=== PATIENT | male | born 1960 | race African-American/Black ===

== ENCOUNTER 2016-12-07 11:56 | Inpatient (IN) | payer OTHER ==
[2016-12-07 13:16] VITALS: BMI 22.1
--- NOTE | 2016-12-07 15:30 | HP ---
Admission ROS [facility] Chief Complaint: I AM HERE FOR REHAB FROM HEROIN AND COCAINE Allergies/Adverse Reactions: Allergies Allergy/AdvReac Type Severity Reaction Status Date / Time No Known Drug Allergies Allergy Verified 12/07/16 15:15 NKA Allergy Uncoded 12/07/16 15:15 History of Present Illness: THIS 56 YEARS OLD MALE WITH HEROIN AND COCAINE DEPENDENCE,ADMITTED IN [facility] FROM 11/29/16 TO 12/05/16 FOR DETOX AND BLOOD CLOT OF RIGHT LEG AMBULATION WITH CANE LONGEST PERIOD OF SOBRIETY 90 DAYS Exam Limitations: No Limitations - Ebola screening Have you traveled outside of the country in the last 21 days: No Have you had contact with anyone from an Ebola affected area: No Have you been sick,other than usual withdrawal symptoms: No Do you have a fever: No - Review of Systems Constitutional: No Symptoms Reported EENT: reports: No Symptoms Reported Respiratory: reports: No Symptoms reported Cardiac: reports: No Symptoms Reported GI: reports: No Symptoms Reported : reports: No Symptoms Reported Musculoskeletal: reports: Muscle Pain Integumentary: reports: No Symptoms Reported Neuro: reports: No Symptoms reported Endocrine: reports: No Symptoms Reported Hematology: reports: No Symptoms Reported Psychiatric: reports: Judgement Intact, Mood/Affect Appropiate, Orientated x3 ( INSOMNIA) Patient History - Patient Medical History Hx Anemia: No Hx Asthma: No Hx Chronic Obstructive Pulmonary Disease (COPD): No Hx Cancer: No Hx Cardiac Disorders: No Hx Congestive Heart Failure: No Hx Hypertension: No Hx Hypercholesterolemia: No Hx Pacemaker: No HX Cerebrovascular Accident: No Hx Seizures: No Hx Dementia: No Hx Diabetes: No Hx Gastrointestinal Disorders: No Hx Liver Disease: No Hx Genitourinary Disorders: No Hx Sexually Transmitted Disorders: No Hx Renal Disease (ESRD): No Hx Thyroid Disease: No Hx Human Immunodeficiency Virus (HIV): No (LAST 11/29/16 NEGATIVE) Hx Hepatitis C: No Hx Depression: No Hx Suicide Attempt: No Hx Bipolar Disorder: No Hx Schizophrenia: No Other Medical History: NO SUICIDAL,NO HOMICIDAL,DVT RIGH TLEG 11/29/16 ON ELIQUIS - Patient Surgical History Past Surgical History: Yes Hx Orthopedic Surgery: Yes (FRACURE OF RIGHT LEG AND RIGHT KNEE) - PPD History Previous Implant?: Yes Documented Results: Negative w/o proof Implanted On Prior [facility] Admission?: No PPD to be Administered?: Yes - Smoking Cessation Smoking history: Current every day smoker Have you smoked in the past 12 months: Yes Aproximately how many cigarettes per day: 2 Initiated information on smoking cessation: Yes 'Breaking Loose' booklet given: 12/07/16 - Substance & Tx. History Hx Alcohol Use: No Hx Substance Use: Yes Substance Use Type: Cocaine, Heroin Hx Substance Use Treatment: Yes ([facility] 11/29/16 TO 12/05/16) - Substances Abused Heroin Route: Inhalation Frequency: 3-6 times per week Amount used: 1 BAG Age of first use: 21 Date of Last Use: 12/05/16 Cocaine Route: Inhalation Frequency: 3-6 times per week Amount used: 30$ Age of first use: 21 Date of Last Use: 12/05/16 Family Disease History - Family Disease History Family History: Denies Admission Physical Exam S - Vital Signs Vital Signs: Vital Signs - 24 hr 12/07/16 13:14 Temperature 98.3 F Pulse Rate 53 L Respiratory 20 Rate Blood Pressure 161/93 - Physical General Appearance: Yes: Within Normal Limits HEENTM: Yes: Hearing grossly Normal, Normal ENT Inspection, Pharynx Normal Respiratory: Yes: Lungs Clear, Normal Breath Sounds, No Respiratory Distress Neck: Yes: Within Normal Limits, Supple, Trachea in good position Breast: Yes: Within Normal Limits Cardiology: Yes: Within Normal Limits, Regular Rhythm, Regular Rate, S1, S2 Abdominal: Yes: Within Normal Limits, Normal Bowel Sounds, Non Tender, Flat, Soft Genitourinary: Yes: Within Normal Limits Back: Yes: Muscle Spasm Musculoskeletal: Yes: Muscle Pain Extremities: Yes: Normal Capillary Refill, Normal Inspection, Normal Range of Motion, Other (DVT OF RIGHT LEG ON ELIQUIS FOR 1 WEEK AMBULATION WITH CANE) Neurological: Yes: certified court interpreter II-XII NML intact, Fully Oriented, Alert, Motor Strength 5/5 Integumentary: Yes: Within Normal Limits Lymphatic: Yes: Within Normal Limits - Diagnostic (1) Opioid dependence Current Visit: Yes Status: Acute (2) Cocaine dependence Current Visit: Yes Status: Acute (3) Right leg DVT Current Visit: Yes Status: Acute (4) Use of cane as ambulatory aid Current Visit: Yes Status: Acute (5) Fracture of right lower extremity Current Visit: Yes Status: Acute (6) Knee fracture, right Current Visit: Yes Status: Acute (7) Nicotine dependence Current Visit: Yes Status: Acute Cleared for Admission S - Detox or Rehab Claeared for Rehab Admission: Yes [facility] Breath Alcohol Content Breath Alcohol Content: 0 Urine Drug Screen - Results Drug Screen Negative: No Urine Drug Screen Results: THC-Marijuana, DEVON-Cocaine, OPI-Opiates, MTD- Methadone
[2016-12-07] MEDS ORDERED: MAGNESIUM CITRATE 300 ML BOTTLE PO PRN (15:56)
[2016-12-07] MEDS ORDERED: guaiFENesin/D-METHORPHAN HB 10 ML UNIT-DOSE CUPS PO PRN (15:56)
[2016-12-07] MEDS ORDERED: MENTHOL/PHENOL 1 EACH UD MM PRN (15:56)
[2016-12-07] MEDS ORDERED: hydrOXYzine PAMOATE 50 MG CAPSULE (FP) PO PRN (15:56)
[2016-12-07] MEDS ORDERED: MAGNESIUM HYDROX 2400MG/30ML ORAL SUSPENSION 30 ML CUP PO PRN (15:56)
[2016-12-07] MEDS ORDERED: P-EPHED 60MG/TRIPROLIDI 2.5MG TABLET PO PRN (15:56)
[2016-12-07] MEDS ORDERED: MAG HYDROX/AL HYDROX/SIMETH 30 ML UNIT-DOSE CUP PO PRN (15:56)
[2016-12-07] MEDS ORDERED: LOPERAMIDE HCL 2 MG CAPSULE PO PRN (15:56)
[2016-12-07] MEDS ORDERED: PT OWN MED DRAWER 7, Y5N ONE ×3 (18:47→21:29)
[2016-12-07 20:01] LABS: URINE APPEARANCE CLEAR; URINE BILIRUBIN NEGATIVE (NEGATIVE); URINE BLOOD NEGATIVE (NEGATIVE); URINE COLOR YELLOW; URINE GLUCOSE (UA) NEGATIVE (NEGATIVE); URINE KETONE NEGATIVE (NEGATIVE); URINE LEUK ESTERASE NEGATIVE (NEGATIVE); URINE NITRITE NEGATIVE (NEGATIVE); URINE PROTEIN NEGATIVE (NEGATIVE); URINE UROBILINOGEN NEGATIVE E.U./dl (0.2-1.0)
[2016-12-07] MEDS: NICOTINE 7 MG/24 HOURS TOPICAL PATCH TD SCH (21:25)
[2016-12-07] MEDS: IBUPROFEN 400 MG TABLET (FP) PO PRN (21:26)
[2016-12-07] MEDS: THIAMINE HCL 100 MG TABLET (FP) PO SCH (21:26)
[2016-12-07] MEDS: diphenhydrAMINE HCL 50 MG CAPSULE PO PRN (21:27)
[2016-12-07] MEDS: APIXABAN 5 MG TABLET PO SCH (21:30)
--- NOTE | 2016-12-08 06:27 | HP ---
Psychiatrist Admission - Data Date of interview: 12/08/16 Admission source: Self-referred Identifying data: This is the first [facility] admision for this 56 years old single Black male, unemployed, domiciled living with mother Medical History: Significant for DVT right leg and surgery for fracture right leg & right knee. Smokes 2 cigarettes daily Psychiatric History: Denies history of previous psychiatric treatment. However, reports feeling mildly depressed and experiencing difficulty to sleep Physical/Sexual Abuse/Trauma History: Denies history of emotional, physical or sexual as well as DV relationship. No service Additional Comment: Reports history of multiple misdemeanor arrests. Denies being on probation at present Vital Signs: Vital Signs - 24 hr 12/07/16 12/08/16 13:14 03:30 Temperature 98.3 F Pulse Rate 53 L Respiratory 20 18 Rate Blood Pressure 161/93 Allergies/Adverse Reactions: Allergies Allergy/AdvReac Type Severity Reaction Status Date / Time No Known Drug Allergies Allergy Verified 12/07/16 15:15 NKA Allergy Uncoded 12/07/16 15:15 Date of last physical exam: 12/07/16 Concur with the findings of this exam: Yes - Substance Abuse/Tx History Hx Alcohol Use: No Hx Substance Use: Yes Substance Use Type: Cocaine (Started using cocaine at age 21, consumes $30 worth daily. Last used on 12/05/16), Heroin (Started using heroin at age 21, consumes one bag 3-6 times weekly. Last used on 12/05/16) Hx Substance Use Treatment: Yes (3 previous inpt detox, most recent @ [facility] & one inpt rehab) - Admission Criteria Previous failed treatment: Yes Poor recovery environment: Yes Comorbidities: Yes Lacks judgement: Yes Mental Status Exam - Mental Status Exam Alert and Oriented to: Time, Place, Person Cognitive Function: Fair Patient Appearance: Well Groomed Mood: Depressed (mildly) Affect: Normal Range Patient Behavior: Cooperative Speech Pattern: Clear Voice Loudness: Normal Thought Process: Intact Thought Disorder: Not Present Hallucinations: Denies Suicidal Ideation: Denies Homicidal Ideation: Denies Insight/Judgement: Fair Sleep: Poorly Appetite: Poor Muscle strength/Tone: Normal Gait/Station: Other (walks with a cane) Psychiatric Findings - Problem List ([place] 1, 2,3) (1) Opioid dependence Current Visit: Yes Status: Acute (2) Cocaine dependence Current Visit: Yes Status: Acute (3) Nicotine dependence Current Visit: Yes Status: Acute (4) Substance induced mood disorder Current Visit: Yes Status: Acute (5) Substance-induced sleep disorder Current Visit: Yes Status: Acute (6) Fracture of right lower extremity Current Visit: Yes Status: Acute (7) Knee fracture, right Current Visit: Yes Status: Acute (8) Right leg DVT Current Visit: Yes Status: Acute (9) Use of cane as ambulatory aid Current Visit: Yes Status: Acute - Initial Treatment Plan Initial Treatment Plan: 1) Start Trazadone 100 mg po HS. 2) Monitor progress
[2016-12-08] MEDS: PRENATAL VITAMINS W/ FOLIC ACID TABLET (FP) PO SCH (10:17)
[2016-12-08] MEDS: APIXABAN 5 MG TABLET PO SCH ×2 (10:17→21:17)
[2016-12-08] MEDS: NICOTINE 7 MG/24 HOURS TOPICAL PATCH TD SCH (10:18)
[2016-12-08] MEDS: IBUPROFEN 400 MG TABLET (FP) PO PRN (10:19)
--- NOTE | 2016-12-08 11:23 | EKG ---
Test Reason : Blood Pressure : / mmHG Vent. Rate : 058 BPM Atrial Rate : 058 BPM P-R Int : 122 ms QRS Dur : 084 ms QT Int : 426 ms P-R-T Axes : 074 081 044 degrees QTc Int : 418 ms SINUS BRADYCARDIA OTHERWISE NORMAL ECG NO PREVIOUS ECGS AVAILABLE Confirmed by TUTU CLAIRE MD ([id number]) on 12/08/2016 11:23:18 AM Referred By: Cheo Hancock Confirmed By:TUTU CLAIRE MD
[2016-12-08 11:30] LABS: MCH 27.5 pg (25.7-33.7); MCHC 32.1 g/dl (32.0-35.9); MEAN CELL VOLUME 85.6 fl (80-96); MEAN PLT VOLUME 9.2 fl (7.5-11.1); PLATELET COUNT 193 K/MM3 (134-434); RDW 15.1 % (11.9-15.9); WHITE BLOOD COUNT 4.5 K/mm3 (4.0-10.0)
[2016-12-08 11:42] LABS: ALBUMIN 3.4 g/dl (3.4-5.0); BILIRUBIN,TOTAL 0.6 mg/dL (0.2-1.0); COCKROFT - GAULT 66.17; CREATININE 1.4 mg/dL (0.7-1.3); TOT PROT 6.4 g/dl (6.4-8.2)
[2016-12-08 12:06] LABS: HIV 1 & 2 AB NEGATIVE; HIV 1 AGp24 NEGATIVE
[2016-12-08] MEDS ORDERED: PT OWN MED DRAWER 7, Y5N ONE (20:37)
[2016-12-08] MEDS: diphenhydrAMINE HCL 50 MG CAPSULE PO PRN (21:17)
[2016-12-08] MEDS: traZODone HCL 100 MG TABLET (FP) PO SCH (21:17)
[2016-12-08] MEDS: THIAMINE HCL 100 MG TABLET (FP) PO SCH (21:17)
[2016-12-09] MEDS ORDERED: PT OWN MED DRAWER 7, Y5N ONE (08:56)
[2016-12-09] MEDS: PRENATAL VITAMINS W/ FOLIC ACID TABLET (FP) PO SCH (10:19)
[2016-12-09] MEDS: APIXABAN 5 MG TABLET PO SCH ×2 (10:19→21:05)
[2016-12-09] MEDS: NICOTINE 7 MG/24 HOURS TOPICAL PATCH TD SCH (10:20)
[2016-12-09] MEDS: THIAMINE HCL 100 MG TABLET (FP) PO SCH (21:05)
[2016-12-09] MEDS: traZODone HCL 100 MG TABLET (FP) PO SCH (21:05)
[2016-12-09] MEDS: IBUPROFEN 400 MG TABLET (FP) PO PRN (21:06)
[2016-12-10] MEDS ORDERED: PT OWN MED DRAWER 7, Y5N ONE (08:50)
[2016-12-10] MEDS: PRENATAL VITAMINS W/ FOLIC ACID TABLET (FP) PO SCH (09:54)
[2016-12-10] MEDS: NICOTINE 7 MG/24 HOURS TOPICAL PATCH TD SCH (09:54)
[2016-12-10] MEDS: APIXABAN 5 MG TABLET PO SCH ×2 (09:54→21:30)
[2016-12-10] MEDS: IBUPROFEN 400 MG TABLET (FP) PO PRN ×2 (11:19→21:30)
[2016-12-10] MEDS: traZODone HCL 100 MG TABLET (FP) PO SCH (21:30)
[2016-12-10] MEDS: diphenhydrAMINE HCL 50 MG CAPSULE PO PRN (21:31)
[2016-12-10] MEDS: THIAMINE HCL 100 MG TABLET (FP) PO SCH (21:31)
[2016-12-11] MEDS ORDERED: PT OWN MED DRAWER 7, Y5N ONE ×3 (08:57→19:45)
[2016-12-11] MEDS: PRENATAL VITAMINS W/ FOLIC ACID TABLET (FP) PO SCH (10:22)
[2016-12-11] MEDS: IBUPROFEN 400 MG TABLET (FP) PO PRN (10:22)
[2016-12-11] MEDS: APIXABAN 5 MG TABLET PO SCH ×2 (10:22→21:14)
[2016-12-11] MEDS: NICOTINE 7 MG/24 HOURS TOPICAL PATCH TD SCH (10:24)
--- NOTE | 2016-12-11 13:14 | PN ---
Psychiatric Progress Note Vital Signs: Vital Signs Period Temp Pulse Resp BP Sys/[place] Pulse Ox Last 24 Hr 98.5 F 67 16-18 143/93 Date of Session: 12/11/16 Chief Complaint:: Insomnia HPI: Patient addressing Opoid and Cocaine Dependence comorbid with Nicotine Dependence, Substance-Induced Mood Disorder and Substance-Induced Sleep Disorder ROS: DVT right leg Current Medications: Active Medications Generic Name Dose Route Start Last Admin Trade Name Freq PRN Reason Stop Dose Admin Acetaminophen 650 mg 12/07/16 15:56 Tylenol - PO Q4H PRN PAIN Al Hydroxide/Mg Hydroxide 30 ml 12/07/16 15:56 Mylanta Oral Suspension - PO Q6H PRN DYSPEPSIA Apixaban 5 mg 12/07/16 22:00 12/11/16 10:22 Eliquis - PO 5 mg BID VARUN Administration Diphenhydramine HCl 50 mg 12/07/16 15:56 12/10/16 21:31 Benadryl - PO 50 mg HSMR1 PRN Administration INSOMNIA Eucalyptus/Menthol/Phenol/Sorbitol 1 each 12/07/16 15:56 Cepastat Lozenge - MM Q4H PRN SORE THROAT Guaifenesin 10 ml 12/07/16 15:56 Robitussin Dm - PO Q6H PRN COUGH Hydroxyzine Pamoate 50 mg 12/07/16 15:56 Vistaril - PO Q4H PRN AGITATION Ibuprofen 400 mg 12/07/16 15:56 12/11/16 10:22 Motrin - PO 400 mg Q6H PRN Administration SEVERE PAIN Loperamide HCl 4 mg 12/07/16 15:56 Imodium - PO Q6H PRN DIARRHEA Magnesium Citrate 300 ml 12/07/16 15:56 Citroma - PO Q48H PRN CONSTIPATION Magnesium Hydroxide 30 ml 12/07/16 15:56 Milk Of Magnesia - PO DAILY PRN CONSTIPATION Nicotine 7 mg 12/07/16 16:45 12/11/16 10:24 Nicoderm Patch - TD 7 mg DAILY VARUN Administration Multivit/Folic Acid/Iron 1 tab 12/08/16 10:00 12/11/16 10:22 Vitamins ([facility]) - PO 1 tab DAILY VARUN Administration Pseudoephedrine/Triprolidine 1 combo 12/07/16 15:56 Actifed - PO TID PRN NASAL CONGESTION Thiamine HCl 100 mg 12/07/16 22:00 12/10/16 21:31 Vitamin B1 - PO 100 mg HS VARUN Administration Trazodone HCl 100 mg 12/08/16 22:00 12/10/16 21:30 Desyrel - PO 100 mg HS VARUN Administration Medication(s) Change(s): Increase Trazadone dosage to 150 mg po HS Current Side Effect: No Lab tests ordered: Yes Lab tests reviewed: Yes Provider note:: Patient reports experiencing difficulty to sleep. Told travel writer that he has been sleeping poorly despite taking Trazadone 100 mg po HS. Requests thar dodage of medication be increased Total face to face time:: 25 Mental Status Exam - Mental Status Exam Alert and Oriented to: Time, Place, Person Cognitive Function: Fair Patient Appearance: Well Groomed Mood: Hopeful, Euthymic Affect: Appropriate Patient Behavior: Cooperative Speech Pattern: Clear Voice Loudness: Normal Thought Process: Intact Thought Disorder: Not Present Hallucinations: Denies Suicidal Ideation: Denies Homicidal Ideation: Denies Insight/Judgement: Fair Sleep: Poorly Appetite: Good Muscle strength/Tone: Normal Gait/Station: Normal Psychiatric Treatment Plan - Problem List (1) Opioid dependence Current Visit: Yes (2) Cocaine dependence Current Visit: Yes (3) Nicotine dependence Current Visit: Yes (4) Substance induced mood disorder Current Visit: Yes (5) Substance-induced sleep disorder Current Visit: Yes (6) Fracture of right lower extremity Current Visit: Yes (7) Knee fracture, right Current Visit: Yes (8) Right leg DVT Current Visit: Yes (9) Use of cane as ambulatory aid Current Visit: Yes Initial treatment plan: 1) Dicontinue Trazadone 100 mg po HS. 2) Start Trazadone 150 mg po HS for insomnia. 3) Monitor progress
[2016-12-11] MEDS: THIAMINE HCL 100 MG TABLET (FP) PO SCH (21:13)
[2016-12-11] MEDS: diphenhydrAMINE HCL 50 MG CAPSULE PO PRN (21:14)
[2016-12-11] MEDS: traZODone HCL 50 MG TABLET (FP) PO SCH (21:14)
[2016-12-12] MEDS ORDERED: PT OWN MED DRAWER 7, Y5N ONE ×3 (08:58→21:06)
[2016-12-12] MEDS: APIXABAN 5 MG TABLET PO SCH ×2 (10:16→21:05)
[2016-12-12] MEDS: PRENATAL VITAMINS W/ FOLIC ACID TABLET (FP) PO SCH (10:16)
[2016-12-12] MEDS: NICOTINE 7 MG/24 HOURS TOPICAL PATCH TD SCH (10:16)
[2016-12-12] MEDS: IBUPROFEN 400 MG TABLET (FP) PO PRN (14:52)
[2016-12-12] MEDS: traZODone HCL 50 MG TABLET (FP) PO SCH (21:05)
[2016-12-12] MEDS: THIAMINE HCL 100 MG TABLET (FP) PO SCH (21:05)
[2016-12-12] MEDS: diphenhydrAMINE HCL 50 MG CAPSULE PO PRN (21:05)
[2016-12-13] MEDS ORDERED: PT OWN MED DRAWER 7, Y5N ONE ×2 (09:00→21:05)
[2016-12-13] MEDS: APIXABAN 5 MG TABLET PO SCH ×2 (10:11→21:05)
[2016-12-13] MEDS: PRENATAL VITAMINS W/ FOLIC ACID TABLET (FP) PO SCH (10:11)
[2016-12-13] MEDS: IBUPROFEN 400 MG TABLET (FP) PO PRN (10:11)
[2016-12-13] MEDS: NICOTINE 7 MG/24 HOURS TOPICAL PATCH TD SCH (10:13)
--- NOTE | 2016-12-13 15:29 | PN ---
[facility] Progress Note Note: 56 y/o m pt in rehab for heroin dep. with h/o dvt tx'ed at [facility] from -12/05/16. pt then admitted to rehab now pt c/o painful rt lower extremity described as same pain he experienced with dvt. Pt presently on eliquis imp- rt lower extremity pain /dvt plan-ED referral for further eval. signed out to Ariel Bose MD in ED [facility]
[2016-12-13] MEDS: THIAMINE HCL 100 MG TABLET (FP) PO SCH (21:05)
[2016-12-13] MEDS: diphenhydrAMINE HCL 50 MG CAPSULE PO PRN (21:05)
[2016-12-13] MEDS: traZODone HCL 50 MG TABLET (FP) PO SCH (21:05)
[2016-12-14] MEDS: ACETAMINOPHEN 325 MG TABLET (FP) PO PRN ×2 (06:14→17:06)
[2016-12-14] MEDS ORDERED: PT OWN MED DRAWER 7, Y5N ONE ×2 (09:33→21:01)
[2016-12-14] MEDS: NICOTINE 7 MG/24 HOURS TOPICAL PATCH TD SCH (10:18)
[2016-12-14] MEDS: APIXABAN 5 MG TABLET PO SCH ×2 (10:18→21:01)
[2016-12-14] MEDS: PRENATAL VITAMINS W/ FOLIC ACID TABLET (FP) PO SCH (10:18)
[2016-12-14] MEDS: THIAMINE HCL 100 MG TABLET (FP) PO SCH (21:01)
[2016-12-14] MEDS: diphenhydrAMINE HCL 50 MG CAPSULE PO PRN ×2 (21:01→22:16)
[2016-12-14] MEDS: traZODone HCL 50 MG TABLET (FP) PO SCH (21:02)
[2016-12-15] MEDS: PRENATAL VITAMINS W/ FOLIC ACID TABLET (FP) PO SCH (10:16)
[2016-12-15] MEDS: NICOTINE 7 MG/24 HOURS TOPICAL PATCH TD SCH (10:16)
[2016-12-15] MEDS: APIXABAN 5 MG TABLET PO SCH ×2 (10:17→21:07)
[2016-12-15] MEDS ORDERED: PT OWN MED DRAWER 7, Y5N ONE (10:17)
[2016-12-15] MEDS: FLUTICASONE PROP 0.05% 16 GM NASAL SPRAY NS SCH ×2 (12:21→21:05)
[2016-12-15] MEDS: THIAMINE HCL 100 MG TABLET (FP) PO SCH (21:05)
[2016-12-15] MEDS: diphenhydrAMINE HCL 50 MG CAPSULE PO PRN (21:06)
[2016-12-15] MEDS: traZODone HCL 50 MG TABLET (FP) PO SCH (21:06)
[2016-12-16] MEDS ORDERED: PT OWN MED DRAWER 7, Y5N ONE ×3 (08:38→21:09)
[2016-12-16] MEDS: PRENATAL VITAMINS W/ FOLIC ACID TABLET (FP) PO SCH (10:19)
[2016-12-16] MEDS: FLUTICASONE PROP 0.05% 16 GM NASAL SPRAY NS SCH ×2 (10:19→21:09)
[2016-12-16] MEDS: APIXABAN 5 MG TABLET PO SCH ×2 (10:20→21:52)
[2016-12-16] MEDS: NICOTINE 7 MG/24 HOURS TOPICAL PATCH TD SCH (10:20)
[2016-12-16] MEDS: diphenhydrAMINE HCL 50 MG CAPSULE PO PRN (21:08)
[2016-12-16] MEDS: THIAMINE HCL 100 MG TABLET (FP) PO SCH (21:08)
[2016-12-16] MEDS: traZODone HCL 50 MG TABLET (FP) PO SCH (21:52)
[2016-12-17] MEDS ORDERED: PT OWN MED DRAWER 7, Y5N ONE ×3 (08:04→10:45)
[2016-12-17] MEDS: APIXABAN 5 MG TABLET PO SCH ×2 (10:20→21:06)
[2016-12-17] MEDS: PRENATAL VITAMINS W/ FOLIC ACID TABLET (FP) PO SCH (10:20)
[2016-12-17] MEDS: NICOTINE 7 MG/24 HOURS TOPICAL PATCH TD SCH (10:20)
[2016-12-17] MEDS: FLUTICASONE PROP 0.05% 16 GM NASAL SPRAY NS SCH ×2 (10:21→21:05)
[2016-12-17] MEDS: diphenhydrAMINE HCL 50 MG CAPSULE PO PRN (21:04)
[2016-12-17] MEDS: THIAMINE HCL 100 MG TABLET (FP) PO SCH (21:04)
[2016-12-17] MEDS: traZODone HCL 50 MG TABLET (FP) PO SCH (21:05)
[2016-12-18] MEDS ORDERED: PT OWN MED DRAWER 7, Y5N ONE (08:59)
[2016-12-18] MEDS: PRENATAL VITAMINS W/ FOLIC ACID TABLET (FP) PO SCH (09:56)
[2016-12-18] MEDS: APIXABAN 5 MG TABLET PO SCH ×2 (09:56→21:20)
[2016-12-18] MEDS: FLUTICASONE PROP 0.05% 16 GM NASAL SPRAY NS SCH ×2 (09:56→21:19)
[2016-12-18] MEDS: NICOTINE 7 MG/24 HOURS TOPICAL PATCH TD SCH (09:57)
[2016-12-18] MEDS: traZODone HCL 50 MG TABLET (FP) PO SCH (21:20)
[2016-12-18] MEDS: THIAMINE HCL 100 MG TABLET (FP) PO SCH (21:20)
[2016-12-18] MEDS: diphenhydrAMINE HCL 50 MG CAPSULE PO PRN (21:20)
--- NOTE | 2016-12-19 09:32 | PN ---
Psychiatric Progress Note Vital Signs: Vital Signs Period Temp Pulse Resp BP Sys/[place] Pulse Ox Last 24 Hr 99 F 83 18-20 118/80 Date of Session: 12/19/16 Chief Complaint:: Discharge Note HPI: Patient addressing Opoid and Cocaine Dependence comorbid with Nicotine Dependence, Substance-Induced Mood Disorder and Substance-Induced Sleep Disorder ROS: DVT right leg was medically managed Current Medications: Active Medications Generic Name Dose Route Start Last Admin Trade Name Freq PRN Reason Stop Dose Admin Acetaminophen 650 mg 12/07/16 15:56 12/14/16 17:06 Tylenol - PO 650 mg Q4H PRN Administration PAIN Al Hydroxide/Mg Hydroxide 30 ml 12/07/16 15:56 12/15/16 12:39 Mylanta Oral Suspension - PO 30 ml Q6H PRN Administration DYSPEPSIA Apixaban 5 mg 12/07/16 22:00 12/18/16 21:20 Eliquis - PO 5 mg BID VARUN Administration Diphenhydramine HCl 50 mg 12/07/16 15:56 12/18/16 21:20 Benadryl - PO 50 mg HSMR1 PRN Administration INSOMNIA Eucalyptus/Menthol/Phenol/Sorbitol 1 each 12/07/16 15:56 Cepastat Lozenge - MM Q4H PRN SORE THROAT Fluticasone Propionate 1 spray 12/15/16 12:00 12/18/16 21:19 Flonase - NS 1 spray BID VARUN Administration Guaifenesin 10 ml 12/07/16 15:56 Robitussin Dm - PO Q6H PRN COUGH Hydroxyzine Pamoate 50 mg 12/07/16 15:56 Vistaril - PO Q4H PRN AGITATION Ibuprofen 400 mg 12/07/16 15:56 12/13/16 10:11 Motrin - PO 400 mg Q6H PRN Administration SEVERE PAIN Loperamide HCl 4 mg 12/07/16 15:56 Imodium - PO Q6H PRN DIARRHEA Magnesium Citrate 300 ml 12/07/16 15:56 Citroma - PO Q48H PRN CONSTIPATION Magnesium Hydroxide 30 ml 12/07/16 15:56 Milk Of Magnesia - PO DAILY PRN CONSTIPATION Nicotine 7 mg 12/07/16 16:45 12/18/16 09:57 Nicoderm Patch - TD 7 mg DAILY VARUN Administration Multivit/Folic Acid/Iron 1 tab 12/08/16 10:00 12/18/16 09:56 Vitamins ([facility]) - PO 1 tab DAILY VARUN Administration Pseudoephedrine/Triprolidine 1 combo 12/07/16 15:56 Actifed - PO TID PRN NASAL CONGESTION Thiamine HCl 100 mg 12/07/16 22:00 12/18/16 21:20 Vitamin B1 - PO 100 mg HS VARUN Administration Trazodone HCl 150 mg 12/11/16 22:00 12/18/16 21:20 Desyrel - PO 150 mg HS VARUN Administration Current Side Effect: No Lab tests ordered: Yes Lab tests reviewed: Yes Provider note:: Patient will complete this program on 12/20/16. He has partially met his treatment goals and will continue to adress his issues in outpatient treatment at [facility]. Told ad copy writer from his participation in this program, he has acquired the tools that will help him with his addiction. He responded well to Trazadone 150 mg po HS for insomnia. Script for that medication will be electronically transmitted to [facility] at [address] [place] [address]. He is stable for discharge on 12/20/16 Total face to face time:: 35 Mental Status Exam - Mental Status Exam Alert and Oriented to: Time, Place, Person Cognitive Function: Fair Patient Appearance: Well Groomed Mood: Expansive, Hopeful, Euthymic Patient Behavior: Cooperative Speech Pattern: Clear, Artificially Ventilated Thought Process: Intact Thought Disorder: Not Present Hallucinations: Denies Suicidal Ideation: Denies Homicidal Ideation: Denies Insight/Judgement: Fair Sleep: Fair Appetite: Good Muscle strength/Tone: Normal Gait/Station: Normal Psychiatric Treatment Plan - Problem List (1) Opioid dependence Current Visit: Yes (2) Cocaine dependence Current Visit: Yes (3) Nicotine dependence Current Visit: Yes (4) Substance induced mood disorder Current Visit: Yes (5) Substance-induced sleep disorder Current Visit: Yes (6) Fracture of right lower extremity Current Visit: Yes (7) Knee fracture, right Current Visit: Yes (8) Right leg DVT Current Visit: Yes (9) Use of cane as ambulatory aid Current Visit: Yes Initial treatment plan: Patient will be discharged tomorrow and referred to [facility]/ for outpatient treatment
[2016-12-19] MEDS: FLUTICASONE PROP 0.05% 16 GM NASAL SPRAY NS SCH ×2 (10:00→21:03)
[2016-12-19] MEDS: PRENATAL VITAMINS W/ FOLIC ACID TABLET (FP) PO SCH (10:21)
[2016-12-19] MEDS: APIXABAN 5 MG TABLET PO SCH ×2 (10:22→21:03)
[2016-12-19] MEDS ORDERED: PT OWN MED DRAWER 7, Y5N ONE ×4 (10:23→21:04)
[2016-12-19] MEDS: NICOTINE 7 MG/24 HOURS TOPICAL PATCH TD SCH (10:23)
[2016-12-19] MEDS: traZODone HCL 50 MG TABLET (FP) PO SCH (21:03)
[2016-12-19] MEDS: THIAMINE HCL 100 MG TABLET (FP) PO SCH (21:04)
[2016-12-19] MEDS: diphenhydrAMINE HCL 50 MG CAPSULE PO PRN (21:04)
[2016-12-20 06:42] VITALS: BP 146/89; PULSE 91; TEMP 98.2
[2016-12-20] MEDS ORDERED: PT OWN MED DRAWER 7, Y5N ONE (09:09)
[2016-12-20] MEDS: FLUTICASONE PROP 0.05% 16 GM NASAL SPRAY NS SCH (09:22)
[2016-12-20] MEDS: PRENATAL VITAMINS W/ FOLIC ACID TABLET (FP) PO SCH (09:22)
[2016-12-20] MEDS: NICOTINE 7 MG/24 HOURS TOPICAL PATCH TD SCH (09:22)
[2016-12-20] MEDS: APIXABAN 5 MG TABLET PO SCH (09:22)
== END 2016-12-20 09:31 | disposition home or self-care (01) | DRG 772 ==
LOC: YASAS 11:56 → Y3W 15:26
PROVIDERS: ADMIT Psychiatry & Neurology Psychiatry; ATTEND Psychiatry & Neurology Psychiatry
PROC: HZ42ZZZ Group Counseling for Substance Abuse Treatment, Cognitive-Behavioral (ICD-10-PCS; principal; 2016-12-07)
DX: F11.20 Opioid dependence, uncomplicated (principal); F14.20 Cocaine dependence, uncomplicated; F17.210 Nicotine dependence, cigarettes, uncomplicated; F19.24 Other psychoactive substance dependence with psychoactive substance-induced mood disorder; F19.282 Other psychoactive substance dependence with psychoactive substance-induced sleep disorder; I82.401 Acute embolism and thrombosis of unspecified deep veins of right lower extremity; R26.2 Difficulty in walking, not elsewhere classified; Z87.81 Personal history of (healed) traumatic fracture; Z79.01 Long term (current) use of anticoagulants
CPT/HCPCS: 36415; 80053; 81003; 85027; 86593; 87389; 93005; 93010

== ENCOUNTER 2016-12-13 16:04 | Emergency (ER) | payer OTHER ==
--- NOTE | 2016-12-13 16:35 | PDOC ---
History of Present Illness <Luciano Patel - Last Filed: 12/13/16 19:21> - General History Source: Patient, Old Records Exam Limitations: No Limitations - History of Present Illness Initial Comments: 12/13/16 16:58 The patient is a 56 year old male brought via EMS from [facility], with a significant past medical history of, who presents to the emergency department with right lower extremity pain. He describes his pain as ranging from mild to moderate, without radiation or modifying factors. He notes that he was diagnosed with a right lower extremity DVT via ultrasound while at [facility]. He was started on Eliquis and discharged. The patient notes that he takes 1 Tylenol daily for the pain The patient is currently at [facility] for cocaine use. The patient denies chest pain, shortness of breath, headache and dizziness. Allergies: None Past surgical history: FRACURE OF RIGHT LEG AND RIGHT KNEE Social history: Cocaine (Started using cocaine at age 21, consumes $30 worth daily. Last used on 12/05/16), Heroin (Started using heroin at age 21, consumes one bag 3-6 times weekly. Last used on 12/05/16) Hx Substance Use Treatment: Yes (3 previous inpt detox, most recent @ [facility] & one inpt rehab) <James Perez - Last Filed: 12/13/16 19:54> - General Chief Complaint: Pain Stated Complaint: PAIN LEG Time Seen by Provider: 12/13/16 16:33 Past History - Past Medical History Anemia: No Asthma: No Cancer: No Cardiac Disorders: No CVA: No COPD: No CHF: No Dementia: No Diabetes: No GI Disorders: No Disorders: No HTN: No Hypercholesterolemia: No Kidney Stones: No Liver Disease: No Suicide Attempt (Hx): No Seizures: No Thyroid Disease: No - Surgical History Orthopedic Surgery: Yes (FRACURE OF RIGHT LEG AND RIGHT KNEE) - Reproductive History Testicular Surgery: No - Psycho/Social/Smoking Cessation Hx Anxiety: No Suicidal Ideation: No Smoking History: Current every day smoker Have you smoked in the past 12 months: Yes Number of Cigarettes Smoked Daily: 2 'Breaking Loose' booklet given: 12/07/16 Hx Alcohol Use: No Drug/Substance Use Hx: Yes Substance Use Type: Cocaine (Started using cocaine at age 21, consumes $30 worth daily. Last used on 12/05/16), Heroin (Started using heroin at age 21, consumes one bag 3-6 times weekly. Last used on 12/05/16) Hx Substance Use Treatment: Yes (3 previous inpt detox, most recent @ [facility] & one inpt rehab) <Luciano Patel - Last Filed: 12/13/16 19:21> <James Perez - Last Filed: 12/13/16 19:54> - Past Medical History Allergies/Adverse Reactions: Allergies Allergy/AdvReac Type Severity Reaction Status Date / Time No Known Drug Allergies Allergy Verified 12/13/16 16:29 NKA Allergy Uncoded 12/13/16 16:29 Home Medications: Ambulatory Orders Apixaban [Eliquis -] 5 mg PO BID 12/07/16 Acetaminophen [Tylenol] 650 mg PO Q4HWA PRN 12/13/16 Diphenhydramine [Benadryl -] 50 mg PO HS 12/13/16 Guaifenesin Dm [Robitussin Dm -] 10 ml PO Q6H PRN 12/13/16 Hydroxyzine Pamoate [Vistaril -] 50 mg PO Q4HWA PRN 12/13/16 Ibuprofen [Motrin -] 400 mg PO QID PRN 12/13/16 Loperamide HCl [Imodium -] 4 mg PO QID PRN 12/13/16 Mag Hydrox/Al Hydrox/Simeth [Mylanta *Suspension*] 30 ml PO Q6H 12/13/16 Magnesium Citrate [Citroma -] 300 ml PO Q2D PRN 12/13/16 Magnesium Hydrox 2400MG/30Ml [Milk of Magnesia -] 30 ml PO DAILY PRN 12/13/16 Multivitamin/Iron/Folic Acid [One Daily Multivitamin-Iron Tb] 1 each PO DAILY Nicotine Patch [Nicoderm Patch -] 1 patch TD DAILY 12/13/16 P-Ephed 60Mg/Triprolidi 2.5MG [Actifed -] 1 combo PO TID PRN 12/13/16 Thiamine HCl [B-1] 100 mg PO HS 12/13/16 Trazodone HCl [Desyrel -] 150 mg PO HS 12/13/16 Review of Systems - Review of Systems Able to Perform ROS?: Yes Comments:: 12/13/16 16:58 GENERAL/CONSTITUTIONAL: No fever or chills. No weakness. HEAD, EYES, EARS, NOSE AND THROAT: No change in vision. No ear pain or discharge. No sore throat. CARDIOVASCULAR: No chest pain or shortness of breath RESPIRATORY: No cough, wheezing, or hemoptysis. GASTROINTESTINAL: No nausea, vomiting, diarrhea or constipation. GENITOURINARY: No dysuria, frequency, or change in urination. MUSCULOSKELETAL: No joint or muscle swelling or pain. No neck or back pain. EXTREMITIES: +Right lower extremity pain. SKIN: No rash NEUROLOGIC: No headache, vertigo, loss of consciousness, or change in strength/ sensation. ENDOCRINE: No increased thirst. No abnormal weight change HEMATOLOGIC/LYMPHATIC: No anemia, easy bleeding, or history of blood clots. ALLERGIC/IMMUNOLOGIC: No hives or skin allergy. <AnaJamesvee Kumari - Last Filed: 12/13/16 19:54> *Physical Exam - Vital Signs Last Vital Signs Temp Pulse Resp BP Pulse Ox 98.3 F 77 20 0/0 99 12/13/16 16:30 12/13/16 16:30 12/13/16 16:30 12/13/16 16:30 12/13/16 16:30 - Physical Exam Comments: 12/13/16 16:58 GENERAL: Awake, alert, and fully oriented, in no acute distress HEAD: No signs of trauma, normocephalic, atraumatic EYES: PERRLA, EOMI, sclera anicteric, conjunctiva clear ENT: Auricles normal inspection, hearing grossly normal, nares patent, oropharynx clear without exudates. Moist mucosa NECK: Normal ROM, supple, no lymphadenopathy, JVD, or masses LUNGS: No distress, speaks full sentences, clear to auscultation bilaterally HEART: Regular rate and rhythm, normal S1 and S2, no murmurs, rubs or gallops, peripheral pulses normal and equal bilaterally. ABDOMEN: Soft, nontender, normoactive bowel sounds. No guarding, no rebound. No masses EXTREMITIES: Normal inspection, Normal range of motion, no edema. No clubbing or cyanosis. NEUROLOGICAL: Cranial nerves II through XII grossly intact. Normal speech, normal gait, no focal sensorimotor deficits SKIN: Warm, Dry, normal turgor, no rashes or lesions noted. <James Perez - Last Filed: 12/13/16 19:54> ED Treatment Course - LABORATORY CBC & Chemistry Diagram: 12/13/16 17:30 <Luciano Patel - Last Filed: 12/13/16 19:21> - LABORATORY CBC & Chemistry Diagram: 12/13/16 17:30 - RADIOLOGY Radiograph Interpretation: 12/13/16 18:53 Right lower extremity doppler Reviewed by: Dr. Jesus Gray Impression: Deep venous thromboses involving the distal right superficial femoral and popliteal vein. <James Perez - Last Filed: 12/13/16 19:54> Medical Decision Making - Medical Decision Making 12/13/16 19:53 The nursing flatwork supervisor was consulted regarding the patient and their taking back the patient at [facility]. <James Perez - Last Filed: 12/13/16 19:54> *DC/Admit/Observation/Transfer - Discharge Dispostion Admit: No - Attestations Physician Attestion: 12/13/16 16:34 I, Dr. Luciano Patel, attest that this document has been prepared under my direction and personally reviewed by me in its entirety. I further attest, that it accurately reflects all work, treatment, procedures and medical decision -making performed by me. <Luciano Patel - Last Filed: 12/13/16 19:21> - Attestations Scribe Attestion: 12/13/16 16:59 Documentation prepared by James Perez, acting as medical cost consultant for Luciano Patel MD <James Perez - Last Filed: 12/13/16 19:54> Diagnosis at time of Disposition: DVT (deep venous thrombosis) Qualifiers: DVT location: lower extremity Affected thrombotic vein of extremity: popliteal Laterality: right Chronicity: acute Qualified Code(s): I82.431 - Acute embolism and thrombosis of right popliteal vein - Patient Instructions Printed Discharge Instructions: DI for Deep Vein Thrombosis Additional Instructions: Rashid - You do have a blood clot in the deep veins of your right leg. As long as you take the eloquis it will not get any larger and it will slowly be resorbed by your body. Your primary care physician will decide when you can stop the eloquis. Return to us if any problems. Best- Dr. Luciano Patel
[2016-12-13 16:40] VITALS: PULSE 77; TEMP 98.3; BMI 23.3
[2016-12-13] MEDS ORDERED: ACETAMINOPHEN 500 MG TABLET (FP) PO ONE (16:41)
[2016-12-13 17:19] VITALS: BP 152/61
[2016-12-13] MEDS ORDERED: ACETAMINOPHEN 325 MG TABLET (FP) ONE (17:33)
[2016-12-13 17:39] LABS: BASOPHIL 0.7 % (0-2.0); EOSINOPHIL 2.4 % (0-4.5); MCH 27.4 pg (25.7-33.7); MCHC 31.9 g/dl (32.0-35.9); MEAN CELL VOLUME 85.7 fl (80-96); MEAN PLT VOLUME 8.2 fl (7.5-11.1); NEUTROPHILS 51.7 % (42.8-82.8); PLATELET COUNT 219 K/MM3 (134-434); RDW 15.2 % (11.9-15.9); WHITE BLOOD COUNT 6.7 K/mm3 (4.0-10.0)
[2016-12-13 17:51] LABS: INR 1.03 (0.82-1.09); PROTHROMBIN TIME (PATIENT) 11.3 SEC (9.98-11.88)
== END 2016-12-13 20:10 | disposition other institution (70) ==
LOC: JER 16:04
DX: I82.431 Acute embolism and thrombosis of right popliteal vein (principal); I82.411 Acute embolism and thrombosis of right femoral vein; F11.20 Opioid dependence, uncomplicated; F14.20 Cocaine dependence, uncomplicated; Z87.81 Personal history of (healed) traumatic fracture
CPT/HCPCS: 36415; 85025; 85610; 86850; 86900; 86901; 93971-TC; 99282-25